=== PATIENT | male | born 1955 | race Two or more races ===

== ENCOUNTER 2021-05-08 06:19 | Inpatient (IN) | payer MEDICARE ==
[~2021-05-08] VITALS: Ht 185.4 cm; Wt 99.0 kg
[2021-05-08 07:39] LABS: Basophils # (auto) 0.1 10 ^3/uL (0-0.2); Basophils % (auto) 0.9 % (0.0-2.0); Eosinophils # (auto) 0.2 10 ^3/uL (0-0.8); Eosinophils % (auto) 2.3 % (0.0-7.0); Hematocrit 40.1 % (41.0-53.0); Hemoglobin 13.6 g/dL (13.5-17.5); Lymphocytes # (auto) 1.1 10 ^3/uL (0.4-5.4); Lymphocytes % (auto) 12.8 % (10.0-50.0); Mean Corpuscular Hemoglobin 31.8 pg (28.0-32.0); Mean Corpuscular Hgb Conc. 34.1 g/dL (32.0-36.0); Mean Corpuscular Volume 93.4 fL (80.0-100.0); Monocytes # (auto) 0.6 10 ^3/uL (0-1.3); Monocytes % (auto) 6.9 % (0.0-12.0); Neutrophils # (auto) 6.6 10 ^3/uL (1.6-8.6); Neutrophils % (auto) 77.1 % (37.0-80.0); Red Blood Cells 4.29 10^6/uL (4.5-5.90); Red Cell Distribution Width 14.2 % (11.8-14.3); White Blood Cell 8.5 10^3/uL (4.4-10.8)
[2021-05-08 07:42] LABS: Albumin 3.3 g/dL (3.4-5.0); Calcium 8.4 mg/dL (8.5-10.1)
[2021-05-08 07:45] LABS: BUN/Creatinine Ratio 16.5; Total Protein 6.8 g/dL (6.4-8.2)
[2021-05-08] MEDS ORDERED: MORPHINE SULFATE INJECTION 2 MG/ML SYRG IV PRN (11:00)
[2021-05-08] MEDS ORDERED: NITROGLYCERIN 0.4 MG SL TAB SL PRN (11:00)
[2021-05-08] MEDS ORDERED: guaiFENesin-DM 100/10mg/5ml SYR PO PRN (13:30)
[2021-05-08] MEDS ORDERED: AZITHROMYCIN 500MG/ 250ML 250 ML IV ONE (13:30)
[2021-05-08] MEDS ORDERED: cefTRIAXone 1GM/50ML D5W 50 ML IV ONE (13:30)
[2021-05-08] MEDS ORDERED: methylPREDNISolone SOD SUCC 40 MG/ML VL IV ONE (14:15)
[2021-05-08 15:16] LABS: Alcohol, Urine < 3.0 mg/dL (0-10); Amphetamine Screen, Urine NEGATIVE (NEGATIVE); Barbiturate Scree,Urine NEGATIVE (NEGATIVE); Benzodiazephine Screen, Urine NEGATIVE (NEGATIVE); Cannabinoid Screen, Urine NEGATIVE (NEGATIVE); Cocaine Screen, Urine NEGATIVE (NEGATIVE); Opiate Scree,Urine NEGATIVE (NEGATIVE); Phencyclidine Screen, Urine NEGATIVE (NEGATIVE)
[2021-05-08 15:34] LABS: Urine Bacteria NONE SEEN /hpf (None Seen); Urine Blood Negative /uL (Negative); Urine Mucus FEW (None Seen); Urine Specific Gravity 1.028 (1.001-1.035); Urine WBC 3 /hpf (0 - 3)
[2021-05-08 16:00] VITALS: BP 124/84
[2021-05-08] MEDS: ALBUTEROL SULF 2.5 MG/0.5ML(0.5%) NEB SOLN NEB SCH ×3 (17:33→23:02)
[2021-05-08] MEDS: IPRATROPIUM BROM 0.5 MG/2.5ML INH SOL NEB SCH ×3 (17:33→23:02)
[2021-05-08] MEDS: TAMSULOSIN HYDROCHLORIDE 0.4 MG CAP PO SCH (17:34)
[2021-05-08] MEDS ORDERED: ALBU108A5 INH (18:03)
[2021-05-08] MEDS ORDERED: FINA5TAB4 PO (18:26)
[2021-05-08] MEDS ORDERED: FURO20TA3 PO (18:26)
[2021-05-08] MEDS ORDERED: LISI20TA28 PO (18:26)
[2021-05-08] MEDS ORDERED: TAMS0.4C36 PO (18:26)
[2021-05-08] MEDS ORDERED: SILD50TA42 PO (18:26)
[2021-05-08] MEDS ORDERED: ATOR40TA52 PO (18:26)
[2021-05-08] MEDS ORDERED: APIX5TAB PO (18:26)
[2021-05-08] MEDS: ATORVASTATIN 20 MG TAB PO SCH (22:19)
[2021-05-08] MEDS: methylPREDNISolone SOD SUCC 40 MG/ML VL IV SCH (22:19)
[2021-05-09 05:00] VITALS: BP 129/75
[2021-05-09] MEDS: IPRATROPIUM BROM 0.5 MG/2.5ML INH SOL NEB SCH ×6 (06:00→23:34)
[2021-05-09 06:12] LABS: Basophils # (auto) 0 10 ^3/uL (0-0.2); Basophils % (auto) 0.1 % (0.0-2.0); Eosinophils # (auto) 0 10 ^3/uL (0-0.8); Hematocrit 40.7 % (41.0-53.0); Hemoglobin 13.8 g/dL (13.5-17.5); Lymphocytes # (auto) 0.5 10 ^3/uL (0.4-5.4); Lymphocytes % (auto) 6.9 % (10.0-50.0); Mean Corpuscular Hemoglobin 31.6 pg (28.0-32.0); Mean Corpuscular Hgb Conc. 33.8 g/dL (32.0-36.0); Mean Corpuscular Volume 93.5 fL (80.0-100.0); Monocytes # (auto) 0.1 10 ^3/uL (0-1.3); Monocytes % (auto) 1.3 % (0.0-12.0); Neutrophils # (auto) 6.9 10 ^3/uL (1.6-8.6); Neutrophils % (auto) 91.7 % (37.0-80.0); Red Blood Cells 4.35 10^6/uL (4.5-5.90); Red Cell Distribution Width 13.9 % (11.8-14.3); White Blood Cell 7.5 10^3/uL (4.4-10.8)
[2021-05-09] MEDS: ALBUTEROL SULF 2.5 MG/0.5ML(0.5%) NEB SOLN NEB SCH ×6 (06:38→23:34)
[2021-05-09 06:44] LABS: Potassium 4.3 mmol/L (3.5-5.1)
[2021-05-09 06:53] LABS: Albumin 3.1 g/dL (3.4-5.0); Bilirubin, Total 0.8 mg/dL (0.2-1.0); Calcium 8.6 mg/dL (8.5-10.1); Total Protein 6.6 g/dL (6.4-8.2)
[2021-05-09] MEDS: cefTRIAXone 1GM/50ML D5W 50 ML IV SCH (08:44)
[2021-05-09 09:00] VITALS: BP 129/83
[2021-05-09] MEDS: methylPREDNISolone SOD SUCC 40 MG/ML VL IV SCH ×2 (09:58→21:24)
[2021-05-09] MEDS: LISINOPRIL 20 MG TAB PO SCH (09:59)
[2021-05-09] MEDS: FUROSEMIDE 20 MG TAB PO SCH (09:59)
[2021-05-09] MEDS: PANTOPRAZOLE 40 MG TAB PO SCH (09:59)
[2021-05-09] MEDS: AZITHROMYCIN 500MG/ 250ML 250 ML IV SCH (09:59)
[2021-05-09] MEDS ORDERED: APIXABAN 5 MG TAB PO ONE (12:29)
[2021-05-09] MEDS ORDERED: CHOLECALCIFEROL (VITD3) 2,000 UNIT CAP/TAB PO ONE (12:30)
[2021-05-09 13:02] VITALS: BP 143/91
[2021-05-09] MEDS: TAMSULOSIN HYDROCHLORIDE 0.4 MG CAP PO SCH (17:39)
[2021-05-09] MEDS ORDERED: NITROGLYCERIN 0.4 MG SL TAB SL PRN (18:27)
[2021-05-09] MEDS: ATORVASTATIN 20 MG TAB PO SCH (21:23)
[2021-05-09] MEDS: APIXABAN 5 MG TAB PO SCH (21:23)
[2021-05-09 22:00] VITALS: BP 143/82
[2021-05-10] MEDS: IPRATROPIUM BROM 0.5 MG/2.5ML INH SOL NEB SCH ×5 (02:06→13:58)
[2021-05-10] MEDS: ALBUTEROL SULF 2.5 MG/0.5ML(0.5%) NEB SOLN NEB SCH ×5 (02:06→13:58)
[2021-05-10 05:00] VITALS: BP 117/70
[2021-05-10 09:00] VITALS: BP 135/95
[2021-05-10] MEDS: cefTRIAXone 1GM/50ML D5W 50 ML IV SCH (09:26)
[2021-05-10] MEDS: AZITHROMYCIN 500MG/ 250ML 250 ML IV SCH (09:26)
[2021-05-10] MEDS: methylPREDNISolone SOD SUCC 40 MG/ML VL IV SCH (09:27)
[2021-05-10] MEDS: PANTOPRAZOLE 40 MG TAB PO SCH (09:28)
[2021-05-10] MEDS: LISINOPRIL 20 MG TAB PO SCH (09:28)
[2021-05-10] MEDS: APIXABAN 5 MG TAB PO SCH (09:28)
[2021-05-10] MEDS: FUROSEMIDE 20 MG TAB PO SCH (10:00)
[2021-05-10] MEDS ORDERED: CHOLECALCIFEROL (VITD3) 2,000 UNIT CAP/TAB PO SCH (10:00)
[2021-05-10] MEDS ORDERED: ALBUAER3 IN (11:14)
[2021-05-10] MEDS ORDERED: CHOL20007 PO (11:14)
[2021-05-10] MEDS ORDERED: LEVO750T8 PO (11:14)
[2021-05-10] MEDS ORDERED: PRED20TA2 PO (11:14)
[2021-05-10 12:44] VITALS: BP 136/91
== END 2021-05-10 13:41 | disposition home or self-care (01) | DRG 202 ==
LOC: ER 06:19 → TELE 10:58 → TELE-WESTW 21:56
PROVIDERS: ADMIT Internal Medicine; ATTEND Internal Medicine
DX: J45.901 Unspecified asthma with (acute) exacerbation (principal); J18.9 Pneumonia, unspecified organism; I50.42 Chronic combined systolic (congestive) and diastolic (congestive) heart failure; I48.20 Chronic atrial fibrillation, unspecified; J44.0 Chronic obstructive pulmonary disease with (acute) lower respiratory infection; N40.0 Benign prostatic hyperplasia without lower urinary tract symptoms; I48.0 Paroxysmal atrial fibrillation; E55.9 Vitamin D deficiency, unspecified; E66.9 Obesity, unspecified; Z20.822 Contact with and (suspected) exposure to COVID-19; E78.5 Hyperlipidemia, unspecified; J20.9 Acute bronchitis, unspecified; I11.0 Hypertensive heart disease with heart failure; Z68.28 Body mass index [BMI] 28.0-28.9, adult; Z87.891 Personal history of nicotine dependence; Z79.01 Long term (current) use of anticoagulants; Z86.718 Personal history of other venous thrombosis and embolism
CPT/HCPCS: 36415; 71045; 71250; 80053; 80061; 80307; 81001; 82306; 83735; 83880; 84443; 85025; 87040; 87086; 87426; 87804; 93306; 94640; 96365; 96368; 96375; G0378; J0696

== ENCOUNTER 2022-10-11 10:34 | Emergency (ER) | payer MEDICARE, OTHER ==
[~2022-10-11] VITALS: Ht 175.3 cm; Wt 112.0 kg
[~2022-10-11 10:34] MED LIST: ALBU108A5 INH; ALBUAER3 IN; APIX5TAB PO; ATOR40TA52 PO; FINA5TAB4 PO; FURO20TA3 PO; LEVO750T8 PO; LISI20TA28 PO; PRED20TA2 PO; SILD50TA42 PO; TAMS0.4C36 PO
[2022-10-11 10:59] LABS: Basophils # (auto) 0.1 10 ^3/uL (0-0.2); Basophils % (auto) 1.2 % (0.0-2.0); Eosinophils # (auto) 0.3 10 ^3/uL (0-0.8); Eosinophils % (auto) 4.2 % (0.0-7.0); Hematocrit 42.1 % (41.0-53.0); Hemoglobin 14.3 g/dL (13.5-17.5); Lymphocytes # (auto) 1.3 10 ^3/uL (0.4-5.4); Lymphocytes % (auto) 21.9 % (10.0-50.0); Mean Corpuscular Hemoglobin 31.4 pg (28.0-32.0); Mean Corpuscular Hgb Conc. 34.1 g/dL (32.0-36.0); Mean Corpuscular Volume 92.1 fL (80.0-100.0); Monocytes # (auto) 0.4 10 ^3/uL (0-1.3); Monocytes % (auto) 7.4 % (0.0-12.0); Neutrophils % (auto) 65.3 % (37.0-80.0); Nucleated Red Blood Cells % 0.3 %; Red Blood Cells 4.57 10^6/uL (4.5-5.90); Red Cell Distribution Width 13.9 % (11.8-14.3); White Blood Cell 6.1 10^3/uL (4.4-10.8)
[2022-10-11] MEDS ORDERED: ASPirin 81 mg TAB PO ONE (11:00)
[2022-10-11 11:09] LABS: INR 1.11 (0.9-1.15); Partial Thromboplastin Time 29.9 sec (24.6-33.4)
[2022-10-11 11:35] LABS: Albumin 3.9 g/dL (3.4-5.0); Calcium 8.9 mg/dL (8.5-10.1); Potassium 4.2 mmol/L (3.5-5.1)
[2022-10-11 11:39] LABS: BUN/Creatinine Ratio 18.3 (10.0-20.0); Total Protein 7.1 g/dL (6.4-8.2)
[2022-10-11] MEDS ORDERED: AZIT1POW PO (13:45)
[2022-10-11 14:11] VITALS: BP 153/80
== END 2022-10-11 14:13 | disposition home or self-care (01) ==
LOC: ER 10:34
DX: J20.9 Acute bronchitis, unspecified (principal); E78.5 Hyperlipidemia, unspecified; I10 Essential (primary) hypertension; Z88.6 Allergy status to analgesic agent
CPT/HCPCS: 36415; 71045; 80053; 84484; 85025; 85610; 85730; 93005

== ENCOUNTER 2022-10-19 13:10 | Emergency (ER) | payer OTHER ==
[~2022-10-19] VITALS: Ht 177.8 cm; Wt 104.0 kg
[~2022-10-19 13:10] MED LIST changes: +AZIT1POW PO
[2022-10-19] MEDS ORDERED: SODIUM CHLORIDE 0.9% 1,000 ML IV ONE (13:45)
[2022-10-19 14:01] LABS: Basophils # (auto) 0.1 10 ^3/uL (0-0.2); Eosinophils # (auto) 0.2 10 ^3/uL (0-0.8); Eosinophils % (auto) 3.2 % (0.0-7.0); Hematocrit 39.9 % (41.0-53.0); Hemoglobin 13.3 g/dL (13.5-17.5); Lymphocytes # (auto) 1.4 10 ^3/uL (0.4-5.4); Lymphocytes % (auto) 19.9 % (10.0-50.0); Mean Corpuscular Hgb Conc. 33.3 g/dL (32.0-36.0); Mean Corpuscular Volume 93.3 fL (80.0-100.0); Monocytes # (auto) 0.5 10 ^3/uL (0-1.3); Monocytes % (auto) 7.9 % (0.0-12.0); Neutrophils # (auto) 4.7 10 ^3/uL (1.6-8.6); Nucleated Red Blood Cells % 0.1 %; Red Blood Cells 4.28 10^6/uL (4.5-5.90); Red Cell Distribution Width 14.4 % (11.8-14.3); White Blood Cell 6.9 10^3/uL (4.4-10.8)
[2022-10-19 14:28] LABS: Albumin 3.9 g/dL (3.4-5.0); Calcium 8.7 mg/dL (8.5-10.1); Potassium 4.1 mmol/L (3.5-5.1)
[2022-10-19 14:34] LABS: INR 1.11 (0.9-1.15); Partial Thromboplastin Time 29.6 sec (24.6-33.4)
[2022-10-19 14:37] LABS: BUN/Creatinine Ratio 19.1 (10.0-20.0); Bilirubin, Total 0.9 mg/dL (0.2-1.0); Total Protein 6.8 g/dL (6.4-8.2)
[2022-10-19] MEDS ORDERED: LEVO-28 PO (16:48)
[2022-10-19] MEDS ORDERED: PRED20TA2 PO (16:48)
[2022-10-19] MEDS ORDERED: PANTOPRAZOLE 40 MG/10 ML VIAL INJ IV ONE (17:00)
[2022-10-19] MEDS ORDERED: methylPREDNISolone SOD SUCC 125 MG/2 ML VL IV ONE (17:00)
[2022-10-19] MEDS ORDERED: cefTRIAXone 1GM/50ML D5W 50 ML IV ONE (17:00)
[2022-10-19 20:05] VITALS: BP 144/84
== END 2022-10-19 20:10 | disposition home or self-care (01) ==
LOC: ER 13:10
DX: J20.9 Acute bronchitis, unspecified (principal); J44.9 Chronic obstructive pulmonary disease, unspecified; E78.5 Hyperlipidemia, unspecified; I10 Essential (primary) hypertension
CPT/HCPCS: 36415; 71275; 80053; 83880; 84484; 85025; 85610; 85730; 96365; 96375; 99285; C9113; J0696; J2930; J7030; Q9967

== ENCOUNTER 2024-03-14 12:08 | Emergency (ER) | payer OTHER ==
[~2024-03-14] VITALS: Ht 177.8 cm; Wt 98.7 kg
[~2024-03-14 12:08] MED LIST changes: +LEVO500T91 PO; -LISI20TA28 PO; +LISI20TA56 PO; +SILD50TA PO; -SILD50TA42 PO; -TAMS0.4C36 PO; +TAMS0.4C39 PO
[2024-03-14 14:03] LABS: Chloride 106 mmol/L (98-107); Potassium 3.4 mmol/L (3.5-5.1); Sodium 140 mmol/L (136-145)
[2024-03-14 14:04] LABS: Anion Gap 9 (5-15); Carbon Dioxide 25 mmol/L (20-31)
[2024-03-14 14:05] LABS: Calcium 10.1 mg/dL (8.7-10.4)
[2024-03-14 14:09] LABS: BUN/Creatinine Ratio 16.6 (10.0-20.0); Blood Urea Nitrogen 30 mg/dL (9-23); Glucose 116 mg/dL (74-106)
[2024-03-14 14:24] LABS: Urine Bacteria FEW /hpf (None Seen); Urine Blood 3+ /uL (Negative); Urine Hyaline Cast FEW /lpf (0 - 2); Urine Mucus FEW (None Seen); Urine Protein, UAD 2+ (Negative); Urine Urobilinogen Normal (Negative); Urine WBC 81 /hpf (0 - 3); Urine pH 5.5 (5.0-9.0)
[2024-03-14 14:27] LABS: Urine Clarity Cloudy (Clear); Urine Color Red (Yellow)
[2024-03-14] MEDS ORDERED: CEPH500C PO (16:07)
[2024-03-14] MEDS ORDERED: TERA2CAP79 PO (16:07)
[2024-03-14 16:12] VITALS: RESP 18; O2SAT 97
[2024-03-14] MEDS: CEPHALEXIN 250 MG CAP PO ONE (17:14)
[2024-03-14 17:20] VITALS: BP 133/85; PULSE 92; RESP 20; TEMP 97.8; O2SAT 96
== END 2024-03-14 17:21 | disposition home or self-care (01) ==
LOC: ER 12:08
DX: N32.0 Bladder-neck obstruction (principal); R33.9 Retention of urine, unspecified; I48.91 Unspecified atrial fibrillation; I10 Essential (primary) hypertension; J44.9 Chronic obstructive pulmonary disease, unspecified; Z79.01 Long term (current) use of anticoagulants; Z79.52 Long term (current) use of systemic steroids; Z79.899 Other long term (current) drug therapy
CPT/HCPCS: 36415; 51702; 80048; 81001

== ENCOUNTER 2024-03-18 15:38 | Emergency (ER) | payer OTHER ==
[~2024-03-18] VITALS: Ht 177.8 cm; Wt 102.6 kg
[~2024-03-18 15:38] MED LIST changes: +CEPH500C PO; +TERA2CAP79 PO
[2024-03-18 18:33] VITALS: BP 149/68; PULSE 90; RESP 18; TEMP 97.9; O2SAT 95
== END 2024-03-18 19:44 | disposition home or self-care (01) ==
LOC: ER 15:44
DX: N40.1 Benign prostatic hyperplasia with lower urinary tract symptoms (principal); I10 Essential (primary) hypertension; J44.89 Other specified chronic obstructive pulmonary disease; E78.5 Hyperlipidemia, unspecified; Z46.6 Encounter for fitting and adjustment of urinary device; Z79.01 Long term (current) use of anticoagulants; Z79.52 Long term (current) use of systemic steroids; Z79.899 Other long term (current) drug therapy; Z87.440 Personal history of urinary (tract) infections

== ENCOUNTER 2024-03-18 23:53 | Emergency (ER) | payer OTHER ==
[~2024-03-18] VITALS: Ht 177.8 cm; Wt 102.6 kg
[2024-03-19 00:23] VITALS: BP 153/92; PULSE 111; RESP 16; TEMP 98; O2SAT 98
== END 2024-03-19 01:02 | disposition home or self-care (01) ==
LOC: ER 23:53
DX: R33.9 Retention of urine, unspecified (principal); I10 Essential (primary) hypertension; J44.89 Other specified chronic obstructive pulmonary disease; Z79.01 Long term (current) use of anticoagulants; Z79.52 Long term (current) use of systemic steroids; Z79.899 Other long term (current) drug therapy; Z87.440 Personal history of urinary (tract) infections
CPT/HCPCS: 51702

== ENCOUNTER 2024-03-27 07:00 | Emergency (ER) | payer OTHER ==
[~2024-03-27] VITALS: Ht 177.8 cm; Wt 103.2 kg
[2024-03-27 07:56] VITALS: BP 156/92; PULSE 78; RESP 17; TEMP 97.5; O2SAT 98
[2024-03-28] MEDS ORDERED: BACDST PO (08:10)
== END 2024-03-27 08:35 | disposition home or self-care (01) ==
LOC: ER 07:00
DX: Z46.6 Encounter for fitting and adjustment of urinary device (principal); I10 Essential (primary) hypertension; E78.6 Lipoprotein deficiency; I48.91 Unspecified atrial fibrillation; J45.909 Unspecified asthma, uncomplicated; J44.9 Chronic obstructive pulmonary disease, unspecified; Z79.899 Other long term (current) drug therapy

== ENCOUNTER 2024-03-28 05:16 | Emergency (ER) | payer OTHER ==
[~2024-03-28] VITALS: Ht 177.8 cm; Wt 102.9 kg
[2024-03-28 05:30] VITALS: TEMP 98.9; O2SAT 98
[2024-03-28 05:55] VITALS: PULSE 93; RESP 11; O2SAT 98
[2024-03-28 07:30] VITALS: PULSE 87; RESP 16; O2SAT 97
[2024-03-28 07:36] LABS: Urine Bacteria FEW /hpf (None Seen); Urine Blood 2+ /uL (Negative); Urine Clarity Clear (Clear); Urine Color Light-Yellow (Yellow); Urine Mucus FEW (None Seen); Urine Protein, UAD Negative (Negative); Urine Specific Gravity 1.013 (1.001-1.035); Urine Urobilinogen Normal (Negative); Urine WBC 19 /hpf (0 - 3)
[2024-03-28 08:00] VITALS: BP 130/78; PULSE 82; RESP 14; O2SAT 98
[2024-03-28] MEDS ORDERED: BACDST PO (08:10)
== END 2024-03-28 09:06 | disposition home or self-care (01) ==
LOC: ER 05:16
DX: R33.9 Retention of urine, unspecified (principal); I10 Essential (primary) hypertension; N39.0 Urinary tract infection, site not specified; J44.9 Chronic obstructive pulmonary disease, unspecified; E78.5 Hyperlipidemia, unspecified; Z79.899 Other long term (current) drug therapy
CPT/HCPCS: 51702; 81001

== ENCOUNTER 2024-03-30 07:18 | Emergency (ER) | payer MEDICARE, OTHER ==
[~2024-03-30] VITALS: Ht 177.8 cm; Wt 100.0 kg
[~2024-03-30 07:18] MED LIST changes: +BACDST PO
[2024-03-30 08:16] LABS: Basophils # (auto) 0.1 10 ^3/uL (0-0.2); Basophils % (auto) 0.8 % (0.0-2.0); Eosinophils # (auto) 0.3 10 ^3/uL (0-0.8); Hematocrit 41.3 % (41.0-53.0); Hemoglobin 13.9 g/dL (13.5-17.5); Lymphocytes # (auto) 1.3 10 ^3/uL (0.4-5.4); Mean Corpuscular Hgb Conc. 33.5 g/dL (32.0-36.0); Mean Corpuscular Volume 95.3 fL (80.0-100.0); Monocytes # (auto) 0.6 10 ^3/uL (0-1.3); Monocytes % (auto) 7.5 % (0.0-12.0); Neutrophils # (auto) 5.9 10 ^3/uL (1.6-8.6); Neutrophils % (auto) 71.7 % (37.0-80.0); Nucleated Red Blood Cells % 0.1 %; Platelet Count (auto) 160 10^3/uL (140-450); Red Blood Cells 4.34 10^6/uL (4.5-5.90); Red Cell Distribution Width 13.8 % (11.8-14.3); White Blood Cell 8.2 10^3/uL (4.4-10.8)
[2024-03-30 08:27] LABS: Chloride 107 mmol/L (98-107); Potassium 3.8 mmol/L (3.5-5.1); Sodium 139 mmol/L (136-145)
[2024-03-30 08:28] LABS: Anion Gap 5 (5-15); Carbon Dioxide 27 mmol/L (20-31)
[2024-03-30 08:29] LABS: Calcium 9.7 mg/dL (8.7-10.4)
[2024-03-30 08:33] LABS: Glucose 110 mg/dL (74-106)
[2024-03-30 08:34] LABS: BUN/Creatinine Ratio 14.4 (10.0-20.0); Blood Urea Nitrogen 13 mg/dL (9-23)
[2024-03-30 09:02] LABS: Urine Bacteria FEW /hpf (None Seen); Urine Blood 3+ /uL (Negative); Urine Color Yellow (Yellow); Urine Mucus FEW (None Seen); Urine Protein, UAD 1+ (Negative); Urine Specific Gravity 1.031 (1.001-1.035); Urine Urobilinogen 3 mg/dL (Negative); Urine WBC 27 /hpf (0 - 3)
[2024-03-30 09:13] LABS: Urine Clarity Cloudy (Clear)
[2024-03-30 09:19] VITALS: PULSE 92; RESP 20; O2SAT 97
[2024-03-30 10:55] VITALS: BP 122/75; PULSE 99; RESP 20; TEMP 98.1; O2SAT 97
== END 2024-03-30 11:00 | disposition admitted as inpatient to this hospital (09) ==
LOC: ER 07:18
DX: N32.0 Bladder-neck obstruction (principal); I10 Essential (primary) hypertension; I48.91 Unspecified atrial fibrillation; E78.5 Hyperlipidemia, unspecified; J44.9 Chronic obstructive pulmonary disease, unspecified; Z46.6 Encounter for fitting and adjustment of urinary device; Z79.899 Other long term (current) drug therapy; Z79.52 Long term (current) use of systemic steroids; Z79.01 Long term (current) use of anticoagulants
CPT/HCPCS: 36415; 80048; 81001; 85025